=== PATIENT | female | born 1985 | race Caucasian/White ===

== ENCOUNTER 2017-04-20 17:40 | Emergency (ER) | payer OTHER ==
[~2017-04-20] VITALS: Ht 154.9 cm; Wt 75.0 kg
[~2017-04-20 17:40] MED LIST: HYDR-3580 PO
[2017-04-20 17:41] VITALS: BP 137/78; PULSE 60; RESP 20; TEMP 97.4; O2SAT 100
[2017-04-20] MEDS ORDERED: ZOFR4TAB PO (18:20)
[2017-04-20] MEDS ORDERED: SODIUM CHLOR 0.9% 1000 ML INJ 1,000 ML IV SCH (18:24)
[2017-04-20] MEDS ORDERED: SODIUM CHLORIDE 0.9% FLUSH 10 ML FLUSH IV FLUSH PRN (18:30)
[2017-04-20] MEDS ORDERED: ONDANSETRON HCL 4 MG/2 ML VIAL IVP ONE (18:30)
[2017-04-20 18:32] VITALS: O2SAT 99
--- NOTE | 2017-04-20 18:32 | PD ---
HPI Chief Complaint: Abdominal Pain Time Seen by Provider: 18:15 Travel History International Travel<30 days: No Contact w/Intl Traveler<30days: No Traveled to known affect area: No History of Present Illness HPI The patient is a 32-year-old female who presents emergency department for abdominal pain with nausea and vomiting that has been ongoing for 1-1/2 years. The patient states she recently delivered in January 2017, was unable to undergo evaluation must she was for this chronic abdominal pain with nausea and vomiting. The patient states that since delivery she's been evaluated at the [facility] where she had laboratory evaluation which was unremarkable. She also had an outpatient CT performed in [place] next to the [facility] which she states was unremarkable. She was advised to follow-up with a tank inspector and has an appointment on Saturday, however, cannot recall the name of the tank inspector that is located and [place], [place]. She was diagnosed with gastritis and placed on omeprazole and sucralfate, was advised she will need outpatient endoscopy. She is undergone colonoscopy in the past which she states is unremarkable. She denies any weight loss despite her chronic nausea, vomiting, and abdominal pain. She denies any current constipation. She denies any dysuria, frequency, or urgency. PFSH Past Medical History Medical History: Denies Significant Hx Tetanus Vaccination: < 5 Years ?: Not : 4 Para: 2 Miscarriage: 1 Past Surgical History Surgical History: No Previous Surgery Social History Alcohol Use: No Tobacco Use: No Substance Use: No Allergies-Medications (Allergen,Severity, Reaction): Coded Allergies: No Known Allergies (Unverified , 04/20/17) Reported Meds & Prescriptions Reported Meds & Active Scripts Active Hydrocodone-Acetaminophen 7.5-325 mg Tab 1 Tab PO Q6H PRN Reported Zofran (Ondansetron HCl) 4 Mg Tab 4 Mg PO Q6HR PRN Review of Systems Except as stated in HPI: all other systems reviewed are Neg General / Constitutional: No: Weight Gain, Weight Loss HENT: No: Lightheadedness Cardiovascular: No: Chest Pain or Discomfort Respiratory: No: Shortness of Breath Gastrointestinal: Positive: Nausea, Vomiting, Abdominal Pain Genitourinary: No: Dysuria, Vaginal Bleeding Physical Exam Narrative GENERAL: Awake, alert, pleasant 32-year-old female who appears her stated age and is in no acute respiratory distress. SKIN: Focused skin assessment warm/dry. HEAD: Atraumatic. Normocephalic. EYES: Pupils equal and round. No scleral icterus. No injection or drainage. ENT: No nasal bleeding or discharge. Mucous membranes pink and moist. NECK: Trachea midline. No JVD. CARDIOVASCULAR: Regular rate and rhythm. No murmur appreciated. RESPIRATORY: No accessory muscle use. Clear to auscultation. Breath sounds equal bilaterally. GASTROINTESTINAL: Abdomen soft,. Umbilical tenderness in bilateral lower abdominal tenderness, but no rebound, guarding, rigidity. MUSCULOSKELETAL: No obvious deformities. No clubbing. No cyanosis. No edema. NEUROLOGICAL: Awake and alert. No obvious cranial nerve deficits. Motor grossly within normal limits. Normal speech. PSYCHIATRIC: Appropriate mood and affect; insight and judgment normal. Data Data Last Documented VS Vital Signs Date Time Temp Pulse Resp B/P Pulse Ox O2 Delivery O2 Flow Rate FiO2 04/20/17 18:32 99 04/20/17 17:41 97.4 60 20 137/78 Room Air Orders Complete Blood Count With Diff (04/20/17 18:24) Comprehensive Metabolic Panel (04/20/17 18:24) Lipase (04/20/17 18:24) Urinalysis - C+S If Indicated (04/20/17 18:24) Iv Access Insert/Monitor (04/20/17 18:24) Ecg Monitoring (04/20/17 18:24) Oximetry (04/20/17 18:24) Morphine Inj (Morphine Inj) (04/20/17 18:30) Ondansetron Inj (Zofran Inj) (04/20/17 18:30) Sodium Chlor 0.9% 1000 Ml Inj (Ns 1000 M (04/20/17 18:24) Sodium Chloride 0.9% Flush (Ns Flush) (04/20/17 18:30) Ed Urine Pregnancytest Poc (04/20/17 18:24) Morphine Inj (Morphine Inj) (04/20/17 18:45) Morphine Inj (Morphine Inj) (04/20/17 19:45) Ondansetron Inj (Zofran Inj) (04/20/17 20:00) Al-Mag Hy-Si 40-40-4 Mg/Ml Liq (Mag-Al P (04/20/17 20:30) Lidocaine 2% Viscous (Xylocaine 2% Visco (04/20/17 20:30) Labs Laboratory Tests Test 04/20/17 04/20/17 18:30 19:00 White Blood Count 8.5 TH/MM3 Red Blood Count 4.66 MIL/MM3 Hemoglobin 13.7 GM/DL Hematocrit 39.6 % Mean Corpuscular Volume 84.9 FL Mean Corpuscular Hemoglobin 29.4 PG Mean Corpuscular Hemoglobin 34.6 % Concent Red Cell Distribution Width 16.3 % Platelet Count 259 TH/MM3 Mean Platelet Volume 9.0 FL Neutrophils (%) (Auto) 61.5 % Lymphocytes (%) (Auto) 28.3 % Monocytes (%) (Auto) 5.3 % Eosinophils (%) (Auto) 4.1 % Basophils (%) (Auto) 0.8 % Neutrophils # (Auto) 5.2 TH/MM3 Lymphocytes # (Auto) 2.4 TH/MM3 Monocytes # (Auto) 0.5 TH/MM3 Eosinophils # (Auto) 0.3 TH/MM3 Basophils # (Auto) 0.1 TH/MM3 CBC Comment DIFF FINAL Differential Comment Sodium Level 137 MEQ/L Potassium Level 4.1 MEQ/L Chloride Level 105 MEQ/L Carbon Dioxide Level 25.3 MEQ/L Anion Gap 7 MEQ/L Blood Urea Nitrogen 16 MG/DL Creatinine 0.74 MG/DL Estimat Glomerular Filtration 92 ML/MIN Rate Random Glucose 107 MG/DL Calcium Level 9.5 MG/DL Total Bilirubin 0.3 MG/DL Aspartate Amino Transf 35 U/L (AST/SGOT) Alanine Aminotransferase 36 U/L (ALT/SGPT) Alkaline Phosphatase 65 U/L Total Protein 7.2 GM/DL Albumin 3.9 GM/DL Lipase 217 U/L Urine Color LIGHT-YELLOW Urine Turbidity CLEAR Urine pH 5.5 Urine Specific [place] 1.004 Urine Protein NEG mg/dL Urine Glucose (UA) NEG mg/dL Urine Ketones NEG mg/dL Urine Occult Blood LARGE Urine Nitrite NEG Urine Bilirubin NEG Urine Urobilinogen LESS THAN 2.0 MG/DL Urine Leukocyte Esterase NEG Urine RBC 2 /hpf Urine WBC 1 /hpf Urine Squamous Epithelial <1 /hpf Cells Urine Bacteria RARE /hpf Microscopic Urinalysis Comment CULT NOT INDICATED MDM Medical Decision Making Medical Screen Exam Complete: Yes Emergency Medical Condition: Yes Medical Record Reviewed: Yes Interpretation(s) Laboratory Tests Test 04/20/17 04/20/17 18:30 19:00 White Blood Count 8.5 TH/MM3 Red Blood Count 4.66 MIL/MM3 Hemoglobin 13.7 GM/DL Hematocrit 39.6 % Mean Corpuscular Volume 84.9 FL Mean Corpuscular Hemoglobin 29.4 PG Mean Corpuscular Hemoglobin 34.6 % Concent Red Cell Distribution Width 16.3 % Platelet Count 259 TH/MM3 Mean Platelet Volume 9.0 FL Neutrophils (%) (Auto) 61.5 % Lymphocytes (%) (Auto) 28.3 % Monocytes (%) (Auto) 5.3 % Eosinophils (%) (Auto) 4.1 % Basophils (%) (Auto) 0.8 % Neutrophils # (Auto) 5.2 TH/MM3 Lymphocytes # (Auto) 2.4 TH/MM3 Monocytes # (Auto) 0.5 TH/MM3 Eosinophils # (Auto) 0.3 TH/MM3 Basophils # (Auto) 0.1 TH/MM3 CBC Comment DIFF FINAL Differential Comment Sodium Level 137 MEQ/L Potassium Level 4.1 MEQ/L Chloride Level 105 MEQ/L Carbon Dioxide Level 25.3 MEQ/L Anion Gap 7 MEQ/L Blood Urea Nitrogen 16 MG/DL Creatinine 0.74 MG/DL Estimat Glomerular Filtration 92 ML/MIN Rate Random Glucose 107 MG/DL Calcium Level 9.5 MG/DL Total Bilirubin 0.3 MG/DL Aspartate Amino Transf 35 U/L (AST/SGOT) Alanine Aminotransferase 36 U/L (ALT/SGPT) Alkaline Phosphatase 65 U/L Total Protein 7.2 GM/DL Albumin 3.9 GM/DL Lipase 217 U/L Urine Color LIGHT-YELLOW Urine Turbidity CLEAR Urine pH 5.5 Urine Specific [place] 1.004 Urine Protein NEG mg/dL Urine Glucose (UA) NEG mg/dL Urine Ketones NEG mg/dL Urine Occult Blood LARGE Urine Nitrite NEG Urine Bilirubin NEG Urine Urobilinogen LESS THAN 2.0 MG/DL Urine Leukocyte Esterase NEG Urine RBC 2 /hpf Urine WBC 1 /hpf Urine Squamous Epithelial <1 /hpf Cells Urine Bacteria RARE /hpf Microscopic Urinalysis Comment CULT NOT INDICATED Differential Diagnosis Differential diagnosis includes abdominal migraine, porphyria, IBS, IBD, gastritis, peptic ulcer disease, pancreatitis, biliary colic. Narrative Course IV was established, labs are drawn and sent, and the patient was placed on cardiac telemetry monitoring and continuous pulse oximetry monitoring. The patient was administered morphine, Zofran, and IV fluids. Lipase level was sent to lab. Bedside UA test was obtained and UA was sent to lab. The patient already has an appointment on Saturday to see a tank inspector, I have advised her to try to obtain records of her CT findings and laboratory evaluation findings that were performed at [facility] and [facility]. Bedside UA test was negative. CBC and CMP are unremarkable. Lipase is within normal limits. Patient continues to have pain, was re-administered Zofran and morphine. The patient is artery had a workup including CT and colonoscopy, has a GI appointment on Saturday. She is stable for outpatient follow-up with gastroenterology. She will be provided a copy of her labs at discharge. Diagnosis Primary Impression: Abdominal pain Qualified Code: R10.84 - Generalized abdominal pain Additional Impression: Gastritis Qualified Code: K29.50 - Chronic gastritis, presence of bleeding unspecified, unspecified gastritis type Patient Instructions: General Instructions Additional Instructions: Continue her medications as previously directed. Please provide the patient a copy of her labs at discharge. Follow-up with gastroenterology on Saturday as previously directed. Med/Other Pt SpecificInfo: No Change to Meds Scripts Dicyclomine (Bentyl)10 Mg Cap10 Mg PO QID #20 CAP Ref 0 Prov:Rodney Orosoc MD 04/20/17 Disposition: DISCHARGE HOME Condition: Stable Rodney Orosco MD Apr 20, 2017 18:32
[2017-04-20] MEDS: MORPHINE SULFATE 4 MG/ML INJ IV PUSH ONE ×2 (18:37→18:51)
[2017-04-20] MEDS ORDERED: MORPHINE SULFATE 8 MG/ML INJ IV PUSH ONE ×2 (18:45→19:45)
[2017-04-20 18:47] LABS: AUTOMATED NEUTROPHIL # 5.2 TH/MM3 (1.8-7.7); BASOPHIL # 0.1 TH/MM3 (0-0.2); BASOPHIL % 0.8 % (0.0-2.0); EOSINOPHIL # 0.3 TH/MM3 (0-0.4); EOSINOPHIL % 4.1 % (0.0-4.0); HEMATOCRIT 39.6 % (35.0-46.0); HEMO FLAGS DIFF FINAL; LYMPH % 28.3 % (9.0-44.0); LYMPHOCYTE # 2.4 TH/MM3 (1.0-4.8); MEAN CELL VOLUME 84.9 FL (80.0-100.0); MEAN CORPUSCULAR HEMOGLOBIN 29.4 PG (27.0-34.0); MEAN CORPUSCULAR HGB CONC 34.6 % (32.0-36.0); MONO % 5.3 % (0.0-8.0); NEUT % 61.5 % (16.0-70.0); PLATELET COUNT 259 TH/MM3 (150-450); RED BLOOD COUNT 4.66 MIL/MM3 (4.00-5.30); RED CELL DISTRIBUTION WIDTH 16.3 % (11.6-17.2); WHITE BLOOD COUNT 8.5 TH/MM3 (4.0-11.0)
[2017-04-20 19:09] LABS: ANION GAP 7 MEQ/L (5-15); AST (GOT) 35 U/L (15-37); BICARBONATE 25.3 MEQ/L (21.0-32.0); BLOOD UREA NITROGEN 16 MG/DL (7-18); CHLORIDE 105 MEQ/L (98-107); GLOMERULAR FILTRATION RATE 92 ML/MIN (>89); POTASSIUM 4.1 MEQ/L (3.5-5.1); SODIUM (NA) 137 MEQ/L (136-145)
[2017-04-20 19:13] LABS: ALKALINE PHOSPHATASE 65 U/L (45-117); ALT (GPT) 36 U/L (10-53); TOTAL BILIRUBIN ADULT 0.3 MG/DL (0.2-1.0)
[2017-04-20] MEDS ORDERED: ONDANSETRON HCL 4 MG/2 ML VIAL IV PUSH ONE (20:00)
[2017-04-20] MEDS ORDERED: ALUMINUM/MAGNESIUM/SIMETH 30 ML CUP PO ONE (20:30)
[2017-04-20] MEDS ORDERED: LIDOCAINE VISCOUS 2% SOLN 15 ML UDC PO ONE (20:30)
[2017-04-20 21:55] LABS: BACTERIA, URINE RARE /hpf; BLOOD, URINE LARGE (NEG); COMMENT (UR) CULT NOT INDICATED; CULTURE IF INDICATED CULT NOT INDICATED; GLUCOSE,URINE NEG (NEG); KETONE, URINE NEG (NEG); NITRITE,URINE NEG (NEG); PH, URINE 5.5 (5.0-8.5); SQUAMOUS EPITHELIAL CELL URINE <1 /hpf (0-5); URINE COLOR LIGHT-YELLOW (YELLW/STRAW)
[2017-04-20] MEDS ORDERED: DICY10 PO (22:23)
[2017-04-20] MEDS ORDERED: DICYCLOMINE HCL 10 MG CAP PO ONE (22:30)
[2017-04-20] MEDS ORDERED: NORC5TAB PO (23:11)
== END 2017-04-20 23:37 | disposition home or self-care (01) ==
LOC: NEPD 17:40
DX: R10.84 Generalized abdominal pain (principal); K29.50 Unspecified chronic gastritis without bleeding
CPT/HCPCS: 80053; 81001; 83690; 84703; 85025; 96374; 96375; 96376; 99284; J2270; J2405; J7030

== ENCOUNTER 2017-06-12 19:26 | Emergency (ER) | payer OTHER ==
[~2017-06-12 19:26] MED LIST changes: +DICY10 PO; +NORC5TAB PO; +ZOFR4TAB PO
[2017-06-12 19:27] VITALS: BP 115/75; PULSE 100; RESP 16; TEMP 98.3; O2SAT 100
[2017-06-12] MEDS ORDERED: SODIUM CHLORIDE 0.9% FLUSH 10 ML FLUSH IVF PRN (20:15)
[2017-06-12] MEDS ORDERED: ONDANSETRON HCL 4 MG/2 ML VIAL IM ONE (20:15)
--- NOTE | 2017-06-12 20:20 | PD ---
HPI Chief Complaint: Abdominal Pain Time Seen by Provider: 20:05 Travel History International Travel<30 days: No Contact w/Intl Traveler<30days: No Traveled to known affect area: No History of Present Illness HPI 32-year-old female presents the emergency department with lower abdominal pain, urinary urgency, frequency, cramping, but denies pain or burning. States she's had no other urinary or bladder for approximately 1-1/2 years, but things have been worse in the last week. Patient states she feels "bloated" and has a lot of urinary urgency and difficulty starting her stream. She denies flank pain, fever, does feel somewhat nauseous. Patient is 4 and half months of a vaginal delivery. Patient's last menstrual period was 2-1/2 weeks. Patient tried to make appointments with local primary care physicians or urology's but they have no appointments for at least a month and patient states she couldn't take it any longer. She denies any other medical problems or medications. Patient denies vaginal discharge of any kind. She denies changes in her bowels. She is allergic to call medicine. PFSH Past Medical History ?: Not LMP: 05/26/17 : 4 Para: 2 Miscarriage: 1 Social History Alcohol Use: No Tobacco Use: No Substance Use: No Allergies-Medications (Allergen,Severity, Reaction): Uncoded Allergies: cold medicine (Allergy, Severe, 06/12/17) Reported Meds & Prescriptions Reported Meds & Active Scripts Active Reported Zofran (Ondansetron HCl) 4 Mg Tab 4 Mg PO Q6HR PRN Review of Systems General / Constitutional: No: Fever Eyes: No: Visual changes HENT: No: Headaches Cardiovascular: No: Chest Pain or Discomfort Respiratory: No: Shortness of Breath Gastrointestinal: No: Abdominal Pain Genitourinary: Positive: Urgency, Frequency, Hesitancy, Pelvic Pain, No: Dysuria, Nocturia, Hematuria, Decreased Urinary Output, Oliguria, Dribbling, Incontinence, Flank Pain, Dyspareunia, Discharge, Vaginal Bleeding Musculoskeletal: No: Pain Skin: No Rash Neurologic: No: Weakness Psychiatric: No: Depression Endocrine: No: Polydipsia Hematologic/Lymphatic: No: Easy Bruising Physical Exam Narrative GENERAL: Patient appears mildly uncomfortable but medically stable. SKIN: Warm and dry. Normal color. Normal turgor. No rash. HEAD: Atraumatic. Normocephalic. EYES: Pupils equal and round. No scleral icterus. No injection or drainage. ENT: No nasal bleeding or discharge. Mucous membranes pink and moist. NECK: Trachea midline. Supple and nontender. CARDIOVASCULAR: Regular rate and rhythm. RESPIRATORY: No accessory muscle use. Clear to auscultation. Breath sounds equal bilaterally. GASTROINTESTINAL: Abdomen soft, moderate suprapubic tenderness, patient appears mildly distended. Hepatic and splenic margins not palpable. No CVA tenderness. Bowel sounds present in all quadrants. MUSCULOSKELETAL: Extremities without clubbing, cyanosis, or edema. No obvious deformities. NEUROLOGICAL: Awake and alert. No obvious cranial nerve deficits. Motor grossly within normal limits. Five out of 5 muscle strength in the arms and legs. Normal speech. PSYCHIATRIC: Appropriate mood and affect; insight and judgment normal. Data Data Last Documented VS Vital Signs Date Time Temp Pulse Resp B/P (MAP) Pulse Ox O2 Delivery O2 Flow Rate FiO2 06/12/17 19:27 98.3 100 16 115/75 (88) 100 Room Air Orders Orders Complete Blood Count With Diff (06/12/17 20:10) Comprehensive Metabolic Panel (06/12/17 20:10) Urinalysis - C+S If Indicated (06/12/17 20:10) Iv Access Insert/Monitor (06/12/17 20:10) Ecg Monitoring (06/12/17 20:10) Sodium Chloride 0.9% Flush (Ns Flush) (06/12/17 20:15) Ondansetron Inj (Zofran Inj) (06/12/17 20:15) Ed Urine Pregnancytest Poc (06/12/17 20:10) Ed Poc Ultrasound (06/12/17 ) Ketorolac Inj (Toradol Inj) (06/12/17 21:15) Phenazopyridine (Pyridium) (06/12/17 21:15) Labs Laboratory Tests Test 06/12/17 20:10 06/12/17 20:50 White Blood Count 10.9 TH/MM3 Red Blood Count 4.74 MIL/MM3 Hemoglobin 14.0 GM/DL Hematocrit 41.3 % Mean Corpuscular Volume 87.1 FL Mean Corpuscular Hemoglobin 29.6 PG Mean Corpuscular Hemoglobin Concent 34.0 % Red Cell Distribution Width 12.7 % Platelet Count 252 TH/MM3 Mean Platelet Volume 9.0 FL Neutrophils (%) (Auto) 63.0 % Lymphocytes (%) (Auto) 23.4 % Monocytes (%) (Auto) 7.5 % Eosinophils (%) (Auto) 5.4 % Basophils (%) (Auto) 0.7 % Neutrophils # (Auto) 6.9 TH/MM3 Lymphocytes # (Auto) 2.5 TH/MM3 Monocytes # (Auto) 0.8 TH/MM3 Eosinophils # (Auto) 0.6 TH/MM3 Basophils # (Auto) 0.1 TH/MM3 CBC Comment DIFF FINAL Differential Comment Blood Urea Nitrogen 19 MG/DL Creatinine 1.01 MG/DL Random Glucose 77 MG/DL Total Protein 7.5 GM/DL Albumin 4.1 GM/DL Calcium Level 8.4 MG/DL Alkaline Phosphatase 62 U/L Aspartate Amino Transf (AST/SGOT) 34 U/L Alanine Aminotransferase (ALT/SGPT) 47 U/L Total Bilirubin 0.3 MG/DL Sodium Level 140 MEQ/L Potassium Level 3.5 MEQ/L Chloride Level 107 MEQ/L Carbon Dioxide Level 26.3 MEQ/L Anion Gap 7 MEQ/L Estimat Glomerular Filtration Rate 64 ML/MIN Urine Color YELLOW Urine Turbidity HAZY Urine pH 6.5 Urine Specific [place] 1.013 Urine Protein NEG mg/dL Urine Glucose (UA) NEG mg/dL Urine Ketones NEG mg/dL Urine Occult Blood NEG Urine Nitrite NEG Urine Bilirubin NEG Urine Urobilinogen LESS THAN 2.0 MG/DL Urine Leukocyte Esterase SMALL Urine RBC 1 /hpf Urine WBC 2 /hpf Urine Squamous Epithelial Cells 4 /hpf Urine Bacteria RARE /hpf Microscopic Urinalysis Comment CULT NOT INDICATED MDM Medical Decision Making Medical Screen Exam Complete: Yes Emergency Medical Condition: Yes Differential Diagnosis Neurogenic bladder. Urinary retention. UTI. Chronic cystitis. Narrative Course Patient is medically stable at time of exam. Laboratory including CBC, CMP, urine . Urinalysis. Nursing staff requested to perform a pre-and post void bladder scan. Pre-and postvoid bladder scan shows no retention. CBC is unremarkable. Urine is negative. CMP shows normal electrolytes. BUN of 19, creatinine 1.01 with GFR of 64. Calcium is slightly low at 8.4. There are no other significant findings. Urinalysis shows no obvious signs of infection. Patient is given 30 mg Toradol IV as well as 200 mg Pyridium by mouth. Patient is felt stable to be discharged home. Patient will be treated with Pyridium 200 mg 3 times a day as needed. #30. Patient also given ibuprofen 600 mg 4 times a day when necessary #40. Patient should follow-up with her local primary care physician or urologist as discussed. Patient can return with worsening symptoms if necessary. Diagnosis Primary Impression: Bladder spasms Referrals: [facility] Primary Care Physician Urologist Patient Instructions: Dysuria (ED), General Instructions Additional Instructions: Pre-and postvoid bladder scan shows no retention. CBC is unremarkable. Urine is negative. CMP shows normal electrolytes. BUN of 19, creatinine 1.01 with GFR of 64. Calcium is slightly low at 8.4. There are no other significant findings. Urinalysis shows no obvious signs of infection. Patient is given 30 mg Toradol IV as well as 200 mg Pyridium by mouth. Patient is felt stable to be discharged home. Patient will be treated with Pyridium 200 mg 3 times a day as needed. #30. Patient also given ibuprofen 600 mg 4 times a day when necessary #40. Patient should follow-up with her local primary care physician or urologist as discussed. Patient can return with worsening symptoms if necessary. Med/Other Pt SpecificInfo: Prescription(s) given Disposition: DISCHARGE HOME Condition: Stable Valdemar Blair Jun 12, 2017 20:20
[2017-06-12 20:45] LABS: AUTOMATED NEUTROPHIL # 6.9 TH/MM3 (1.8-7.7); BASOPHIL # 0.1 TH/MM3 (0-0.2); BASOPHIL % 0.7 % (0.0-2.0); EOSINOPHIL # 0.6 TH/MM3 (0-0.4); EOSINOPHIL % 5.4 % (0.0-4.0); HEMATOCRIT 41.3 % (35.0-46.0); HEMO FLAGS DIFF FINAL; LYMPH % 23.4 % (9.0-44.0); LYMPHOCYTE # 2.5 TH/MM3 (1.0-4.8); MEAN CELL VOLUME 87.1 FL (80.0-100.0); MEAN CORPUSCULAR HEMOGLOBIN 29.6 PG (27.0-34.0); MONO % 7.5 % (0.0-8.0); PLATELET COUNT 252 TH/MM3 (150-450); RED BLOOD COUNT 4.74 MIL/MM3 (4.00-5.30); RED CELL DISTRIBUTION WIDTH 12.7 % (11.6-17.2); WHITE BLOOD COUNT 10.9 TH/MM3 (4.0-11.0)
[2017-06-12 21:04] LABS: ALKALINE PHOSPHATASE 62 U/L (45-117); TOTAL BILIRUBIN ADULT 0.3 MG/DL (0.2-1.0)
[2017-06-12 21:08] LABS: BACTERIA, URINE RARE /hpf; BLOOD, URINE NEG (NEG); COMMENT (UR) CULT NOT INDICATED; CULTURE IF INDICATED CULT NOT INDICATED; GLUCOSE,URINE NEG (NEG); KETONE, URINE NEG (NEG); NITRITE,URINE NEG (NEG); PH, URINE 6.5 (5.0-8.5); SQUAMOUS EPITHELIAL CELL URINE 4 /hpf (0-5); URINE COLOR YELLOW (YELLW/STRAW)
[2017-06-12 21:08] LABS: ALT (GPT) 47 U/L (10-53); ANION GAP 7 MEQ/L (5-15); AST (GOT) 34 U/L (15-37); BICARBONATE 26.3 MEQ/L (21.0-32.0); BLOOD UREA NITROGEN 19 MG/DL (7-18); CHLORIDE 107 MEQ/L (98-107); GLOMERULAR FILTRATION RATE 64 ML/MIN (>89); POTASSIUM 3.5 MEQ/L (3.5-5.1); SODIUM (NA) 140 MEQ/L (136-145)
[2017-06-12] MEDS ORDERED: PHENAZOPYRIDINE HCL 200 MG TAB PO ONE (21:15)
[2017-06-12] MEDS ORDERED: KETOROLAC TROMETHAMINE 30 MG/ML (IVP) VIAL IV PUSH ONE (21:15)
[2017-06-12] MEDS ORDERED: IBUP-232 PO (21:20)
[2017-06-12] MEDS ORDERED: PHEN0.4T PO (21:20)
== END 2017-06-12 22:26 | disposition home or self-care (01) ==
LOC: NEPC 19:26
DX: N32.89 Other specified disorders of bladder (principal)
CPT/HCPCS: 80053; 81001; 84703; 85025; 96374; 96375; 99284; J1885; J2405